=== PATIENT | male | born 1965 | race Caucasian/White ===

== ENCOUNTER 2022-01-18 04:33 | Day surgery (SDC) | payer OTHER ==
[2022-01-18 07:19] VITALS: BMI 25.7
[2022-01-18 08:23] VITALS: TEMP 97.5
[2022-01-18 09:06] VITALS: BP 107/68; PULSE 49
== END 2022-01-18 09:19 | disposition home or self-care (01) ==
LOC: JASU-ENDO 04:33
PROVIDERS: ATTEND Internal Medicine Gastroenterology
PROC: 0DBN8ZX Excision of Sigmoid Colon, Via Natural or Artificial Opening Endoscopic, Diagnostic (ICD-10-PCS; principal; 2022-01-18 08:00)
DX: Z12.11 Encounter for screening for malignant neoplasm of colon (principal); D12.5 Benign neoplasm of sigmoid colon; K64.8 Other hemorrhoids
CPT/HCPCS: 88305-TC

== ENCOUNTER 2023-07-04 04:25 | Day surgery (SDC) | payer OTHER ==
[2023-06-30 11:17] VITALS: BMI 25.0
[2023-07-04 12:40] VITALS: TEMP 97.8
[2023-07-04 12:49] VITALS: RESP 20
[2023-07-04 13:07] VITALS: BP 116/72; PULSE 59
== END 2023-07-04 13:34 | disposition home or self-care (01) ==
LOC: JASU-ENDO 04:25
PROVIDERS: ATTEND Internal Medicine Gastroenterology
PROC: 0DB78ZX Excision of Stomach, Pylorus, Via Natural or Artificial Opening Endoscopic, Diagnostic (ICD-10-PCS; 2023-07-04)
PROC: 0DB68ZX Excision of Stomach, Via Natural or Artificial Opening Endoscopic, Diagnostic (ICD-10-PCS; 2023-07-04)
PROC: 0DB98ZX Excision of Duodenum, Via Natural or Artificial Opening Endoscopic, Diagnostic (ICD-10-PCS; principal; 2023-07-04 11:15)
DX: K29.50 Unspecified chronic gastritis without bleeding (principal); K31.A0 Gastric intestinal metaplasia, unspecified; I89.0 Lymphedema, not elsewhere classified
CPT/HCPCS: 88305-TC; 88342-TC